=== PATIENT | male | born 1955 | race Caucasian/White ===

== ENCOUNTER 2018-03-21 09:42 | Emergency (ER) | payer OTHER ==
[~2018-03-21] VITALS: Ht 170.2 cm; Wt 70.0 kg
[2018-03-21 09:47] VITALS: TEMP 36.6; Ht 170.2 cm; Wt 70.0 kg
[2018-03-21] MEDS ORDERED: HYDROCODONE/ACETAMIN 5/325MG TAB PO STA (09:59)
[2018-03-21] MEDS ORDERED: DIPHTHERIA/TETANUS/PERTUSSIS 0.5 ML SYR/VIAL IM. ONE (10:00)
--- NOTE | 2018-03-21 10:35 | DIAGNOSTIC IMAGING REPORT ---
L FEMUR 2 VIEWS ROUTINE CLINICAL HISTORY: pain,left lateral impact from log pain COMPARISON: None. DISCUSSION: Significant degenerative change left hip. Subchondral cystic formation is seen at the femoral head as well as acetabulum. The femur specifically is unremarkable. Cortical margins are intact. There is no abnormal periosteal reaction. There is no evidence for soft tissue swelling. IMPRESSION: 1. Degenerative change left hip. 2. No acute process of the remainder the femur. The above report was generated using voice recognition software. It may contain grammatical, syntax or spelling errors. Electronically signed by: Marlon Sousa M.D. 03/21/2018 10:34 AM Dictated Date/Time: 03/21/2018 10:33 AM
[2018-03-21] MEDS ORDERED: OXYC1TAB3 PO (11:02)
[2018-03-21 11:17] VITALS: BP 151/96; PULSE 92; O2SAT 95
--- NOTE | 2018-03-21 18:47 | EMERGENCY ROOM VISIT NOTE ---
History Report prepared by Ruthibdenis: Brodie August Under the Supervision of: Dr. Jake Nash M.D. First contact with patient: 09:50 Chief Complaint: LEG PAIN,LEG INJURY Stated Complaint: POSSIBLE BROKEN LEG - LEFT History of Present Illness The patient is a 62 year old male who presents to the Emergency Room with complaints of constant left leg pain beginning 45 minutes ago. He states that he was sawing logs when one of them fell onto his leg. He states that the log was partially rotten, and rolled out of the hold once it was partially cut. The patient states that he was hit by a jarred on the log. He states that the jarred cut his right and left forearms during the event. He has been unable to walk since the episode due to pain. The patient states that his toes were tingling following the injury, but this is improving. He also reports having the wind knocked out of him due to the pain in his leg. He rates his pain as an 8.5/10 in severity. The patient denies chest pain, abdominal pain, or headache. He was wearing a hard hat and gloves. Source of History: patient Onset: 45 minutes ago Position: leg (left) Symptom Intensity: 8.5/10 Timing: constant Associated Symptoms: No headache, No chest pain, No abdominal pain Note: The patient states that his toes were tingling following the injury, but this is improving. Review of Systems See HPI for pertinent positives and negatives. A total of ten systems were reviewed and were otherwise negative. Past Medical & Surgical Medical Problems: (1) No Known Active Medical Problems Family History No pertinent family history stated. Social History Smoking Status: Current Every Day Smoker Alcohol Use: occasionally Current/Historical Medications Scheduled PRN Oxycodone Ir (Roxicodone Ir), 1-2 TAB PO Q4H PRN for Pain Allergies Coded Allergies: No Known Allergies (Unverified , 03/21/18) Physical Exam Vital Signs Date Time Temp Pulse Resp B/P (MAP) Pulse Ox O2 Delivery O2 Flow Rate FiO2 03/21/18 11:17 92 16 151/96 95 03/21/18 09:47 36.6 81 18 152/81 98 Room Air Physical Exam GENERAL: Awake, alert, non-ill appearing, in no acute distress HEAD: Normocephalic, atraumatic. No geller sign. No raccoon eyes. EYES: Normal conjunctiva. PERRL. EARS: External ears normal. Right TM normal. Left TM normal. NOSE: Atraumatic OROPHARYNX: Lips, tongue, and mucosa unremarkable. No erythema or exudate. NECK: No tracheal deviation or JVD. No posterior midline tenderness. No step offs noted. RESPIRATORY: CTA bilaterally. Breath sounds equal. No wheezes. No rhonchi. Normal respiratory effort. CARDIAC: Normal rate, normal rhythm. No murmurs. No rubs. ABDOMEN: Inspection reveals no abnormalities. Soft, non distended. No tenderness to palpation. No hernias. BACK: No midline step offs or tenderness to palpation. Unremarkable. PELVIS: Stable to rock. SKIN: Normal. LYMPH: No adenopathy. MUSCULOSKELETAL: Small abrasion to the right wrist on the volar aspect. No bony deformity. Abrasion to the left proximal forearm on the volar and dorsal aspect. Right lower extremity is atraumatic. Left hip is non-tender with range of motion. Abrasion to the lateral left thigh down to the proximal lower leg. Maximal tenderness to the distal left quadriceps/IT band region. No knee joint tenderness or effusion. Remainder of left lower extremity is atraumatic. NEURO: GCS 15. Normal sensorium. No sensory or motor deficits noted. Medical Decision & Procedures ER Provider Diagnostic Interpretation: Radiology results as stated below per my review and radiologist interpretation: L FEMUR 2 VIEWS ROUTINE DISCUSSION: Significant degenerative change left hip. Subchondral cystic formation is seen at the femoral head as well as acetabulum. The femur specifically is unremarkable. Cortical margins are intact. There is no abnormal periosteal reaction. There is no evidence for soft tissue swelling. IMPRESSION: 1. Degenerative change left hip. 2. No acute process of the remainder the femur. The above report was generated using voice recognition software. It may contain grammatical, syntax or spelling errors. Electronically signed by: Marlon Sousa M.D. 03/21/2018 10:34 AM Medications Administered Medications (Trade) Dose Ordered Sig/Krystyna Route Start Time Stop Time Status Last Admin Dose Admin Acetaminophen/ Hydrocodone Bitart (Chester 5/325 Tab) 1 tab NOW STAT PO 03/21/18 09:59 03/21/18 10:00 DC 03/21/18 10:11 1 TAB Diphtheria/ Pertussis/Tetanus Vacc (Adacel Inj) 0.5 ml ONCE ONCE IM. 03/21/18 10:00 03/21/18 10:01 DC 03/21/18 10:13 0.5 ML ED Course 0952: The patient was evaluated in room A4B. A complete history and physical exam was performed.\ 0959: Ordered Chester 5/325 Tab PO. 1000: Ordered Adacel Inj 0.5 mL IM. 1102: I reevaluated the patient. Discussed results and discharge instructions: he verbalized understanding and agreement. The patient is ready for discharge. Medical Decision Prior records reviewed and summarized above. Triage Nursing notes reviewed and agree them. Additional history obtained from his coworker. The patient's history was concerning for traumatic injury. Differential diagnosis: Etiologies such as fracture, dislocation, neurovascular compromise, compartment syndrome, soft tissue injury, as well as others were entertained. Physical examination: Consistent with an isolated extremity injuries. The upper extremity for minor. ER treatment provided: Oral Chester Ice packs On reassessment the patient felt better. Diagnostics interpreted by me: Labs deferred. Imaging studies: Xrays as above. Patient is doing well. He has abrasions and a moderate contusion to the lateral quadriceps area. There is no significant hematoma at this time. He has crutches at home. By the evaluation outlined above emergent etiologies such as fracture, dislocation, neurovascular compromise, compartment syndrome, infections, as well as others were deemed relatively unlikely. The patient was informed about the findings as listed above. All questions were answered and he was very pleased with the treatment. Return instructions were outlined and the patient was discharged in stable condition. Prescription management: Oxy IR Referral: Follow-up with your primary care physician in 2 to 3 days for a recheck of your current condition. [place] Drug Monitoring Program Search Results: patient reviewed within database, no issues identified Medication Reconcilliation Current Medication List: was personally reviewed by me Blood Pressure Screening Patient's blood pressure: Elevated blood pressure Blood pressure disposition: Referred to PCP Impression Primary Impression: Contusion of left leg Additional Impressions: Abrasion of left leg Arm contusion Arm abrasion Scribe Attestation The scribe's documentation has been prepared under my direction and personally reviewed by me in its entirety. I confirm that the note above accurately reflects all work, treatment, procedures, and medical decision making performed by me. Departure Information Dispostion Home / Self-Care Prescriptions Oxycodone Ir (Roxicodone Ir) 5 Mg Tab 1-2 TAB PO Q4H Y for Pain, #12 TAB Prov: Jake Nash MD 03/21/18 Forms HOME CARE DOCUMENTATION FORM, IMPORTANT VISIT INFORMATION Patient Instructions My [facility] Additional Instructions DO NOT drive, drink alcohol, operate machinery, or perform dangerous activities today. You were given medications in the ER that can affect your ability to safely function or operate a vehicle. Oxycodone (OxyIR) 5mg: Take 1-2 pills every four hours for breakthrough pain. Avoid alcohol, operating machinery or dangerous equipment, working on ladders or roofs, DRIVING, or situations where being under the influence may be dangerous. It is recommended to use an [id number] stool softener such as Colace, 100mg twice daily while taking this medication to avoid constipation. Ibuprofen(Motrin, Advil) may be used for fever or pain. Use 600mg every six hours as needed. Take with food. Avoid using more than 2400mg in a 24 hour period. Do not use 2400mg per day for more than three consecutive days without physician direction. Prolonged inappropriate use can lead to stomach upset or ulcers. (AND/OR) Acetaminophen(Tylenol) may be used for fever or pain. Use 1000mg every six hours as needed. Avoid using more than 4000mg in a 24 hour period. Ice compresses for 20 minutes at a time four times daily for 2-3 days. Use the crutches as instructed. Rest and elevate your injury. Return to the ER immediately for any numbness, tingling, severe pain, extreme swelling in the extremity or as needed. Follow-up with your primary care physician in 2 to 3 days for a recheck of your current condition. Problem Qualifiers
== END 2018-03-21 11:30 | disposition home or self-care (01) ==
LOC: C.EDB 09:43 → C.EDA 11:30
DX: S80.12XA Contusion of left lower leg, initial encounter (principal); S70.312A Abrasion, left thigh, initial encounter; S50.812A Abrasion of left forearm, initial encounter; W20.8XXA Other cause of strike by thrown, projected or falling object, initial encounter; Y93.89 Activity, other specified; F17.210 Nicotine dependence, cigarettes, uncomplicated; Z23 Encounter for immunization